=== PATIENT | female | born 1960 | race American Indian/Alaskan Native ===

== ENCOUNTER 2016-04-20 10:20 | Emergency (ER) | payer OTHER ==
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
[2016-04-20] MEDS ORDERED: TYLENOL PO ONE (15:47)
[2016-04-20 16:10] VITALS: BP 158/90
== END 2016-04-20 16:10 | disposition home or self-care (01) ==
LOC: ED 10:20
DX: M54.2 Cervicalgia (principal); I10 Essential (primary) hypertension; Z79.82 Long term (current) use of aspirin
CPT/HCPCS: 99282

== ENCOUNTER 2017-04-03 05:25 | Emergency (ER) | payer OTHER ==
[2017-04-03 07:19] VITALS: BP 145/87
[2017-04-03] MEDS ORDERED: TORADOL IM ONE (09:35)
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
== END 2017-04-03 09:55 | disposition home or self-care (01) ==
LOC: ED 05:25
DX: I10 Essential (primary) hypertension (principal); M54.2 Cervicalgia; M25.512 Pain in left shoulder
CPT/HCPCS: 93005; 93010; 96372; 99282; J1885